=== PATIENT | female | born 1965 | race Caucasian/White ===

== ENCOUNTER 2018-04-22 08:58 | Outpatient (CLI) | payer OTHER ==
--- NOTE | 2018-04-22 10:17 | RAD ---
CHEST PA AND LATERAL: History: 52-year-old female with history of cough. FINDINGS: Heart size is normal. The lungs are clear. Calcified granuloma in the right lower lobe. No confluent pneumonia, overt edema, or pleural effusion. IMPRESSION: Old granulomatous disease. No acute intrathoracic disease. POS: [facility]
== END 2018-04-22 08:59 | disposition home or self-care (01) ==
LOC: RAD-FRANK 08:58
PROVIDERS: ATTEND Nurse Practitioner Family
DX: R05 Cough (principal)
CPT/HCPCS: 71046